=== PATIENT | male | born 1960 | race Caucasian/White ===

== ENCOUNTER 2023-09-18 10:44 | Inpatient (IN) | payer OTHER ==
[2023-09-18 11:47] VITALS: BMI 29.2
[2023-09-18] MEDS ORDERED: ACETAMINOPHEN 500 MG TAB PO PRN (12:23)
--- NOTE | 2023-09-18 13:49 | RAD REPORT ---
EXAM DESCRIPTION: RAD - Chest Pa And Lat (2 Views) - 09/18/2023 1:10 pm CLINICAL HISTORY: headache, AMS COMPARISON: Chest Pa And Lat (2 Views) dated 10/29/2016; CHEST PA AND LAT 2 VIEW dated 05/18/2010 TECHNIQUE: PA and lateral views of the chest were obtained. FINDINGS: The lungs are clear. Heart size is normal and central vasculature is within normal limits. No pleural effusion or pneumothorax seen. No acute bony finding noted. IMPRESSION: No acute cardiopulmonary process.
--- NOTE | 2023-09-18 15:10 | RAD REPORT ---
EXAM DESCRIPTION: MRI - Brain W/Wo Cont - 09/18/2023 2:05 pm CLINICAL HISTORY: headache, AMS COMPARISON: None available TECHNIQUE: Multiplanar multisequence MRI of the brain performed before and after intravenous adminis tration of 20 mL MultiHance. FINDINGS: Large heterogeneous mass with central necrosis and nodular peripheral enhancement, centere d on the right lateral ventricle trigone, invading the adjacent parenchyma,, with moderate associated cytotoxic edema pattern involving the adjacent right temporal and parietal lobes, resulting in mass effect, with leftward bowing of the septum pellucidum, by approximately 4 millimeter. Film like enhan cement extends along the right occipital horn ependyma layer, with focal entrapment of this segment. Some nodular asymmetric enhancement also extends along the right trigonal choroid plexus. In its grea test axial dimensions, the enhancing mass measures 5.7 x 3.9 cm, and approximately 4.7 cm in greatest craniocaudal extent. No evidence of acute infarct or other diffusion signal abnormality. Mild peripheral diffusion restric tion along the bilateral and posterior aspects of the mass. No evidence of acute intracranial hemorrhage or abnormal extra-axial fluid collections. No other findings to suggest hydrocephalus. Suprasellar cistern is patent. Mild apparent pachymeninge al enhancement along the high right parietal and frontal hemispheres, may relate to hyperemia and/or effacement of the sulci given asymmetric mass-effect. Possibility of leptomeningeal spread considered less likely since the finding does not persist on all sequences. Other scattered subcortical and deep white matter T2/FLAIR hyperintensities, nonspecific, but suggest stuart of chronic small vessel ischemic changes. Major vascular flow voids are preserved. Mastoid air cells and paranasal sinuses are clear. IMPRESSION: Large mass centered on the right lateral ventricle trigone, with central necrotic change , mass effect with 4 millimeter leftward midline shift, and focal entrapment of the right occipital h orn as above. The mass measures 5.7 x 4.7 x 3.9 cm. Differential considerations include glioblastoma multiform, less likely choroid plexus metastasis. Other considerations include choroid plexus carcino ma (less likely given patient's age). Poorly differentiated choroid plexus papilloma is possible but considered less likely. Questionable mild pachymeningeal enhancement along the high right parietal and frontal hemisphere, ma y relate to hyperemia and/or effacement of the sulci given asymmetric mass-effect. Possibility of lep tomeningeal spread considered less likely since the finding does not persist on all sequences. The findings were communicated to Kd eDe on 09/18/2023 at 15:06 hours.
[2023-09-18 15:36] LABS: Absolute Lymphocytes (CBC) 1.2 K/uL (0.7-4.9); Hematocrit 43.5 % (39.6-49.0); Lymphocytes % 14.5 % (15.3-44.8); MCV 87.2 fL (80-100); MPV 6.5 fL (7.6-11.3); Platelets 309 thou/uL (152-406); RBC Red Blood Cell Count 4.99 M/uL (4.33-5.43)
[2023-09-18] MEDS: METHYLPREDNISOLONE 125 MG INJ IV ONE ×2 (15:57→16:19)
[2023-09-18] MEDS ORDERED: levETIRAcetam 500 MG TAB PO ONE (15:58)
[2023-09-18 16:00] LABS: Albumin 3.7 g/dL (3.4-5.0); Bilirubin Total 0.7 mg/dL (0.2-1.0); Thyroid Stimulating Hormone 1.1 uIU/mL (0.358-3.740)
[2023-09-18] MEDS ORDERED: MORPHINE 2 MG/ML SYR IV ONE (16:41)
[2023-09-18] MEDS: ALPRAZOLAM 0.25 MG TABLET PO SCH (20:24)
[2023-09-18] MEDS: AMLODIPINE 5 MG TAB PO SCH (20:24)
[2023-09-18] MEDS: LOSARTAN POTASSIUM 50 MG TABLET PO SCH (20:24)
--- NOTE | 2023-09-18 22:02 | CON ---
Reason For Consultation: Consultation called by Dr. Dee because of headache and altered mental stat us. History Of Present Illness: Mr. Mai is a 63-year-old patient with hypertension, dyslipidemia, be nign prostate hypertrophy, who has about 3 weeks of slowly progressive headaches, altered mental stat us, difficulty focusing, and processing information and is being somewhat off-balance. He was seen b y Dr. Dee earlier in the day and sent to [facility] for further evaluation. His brain MRI is done on 09/18/2023, shows a large mass centered in the right lateral ventricle trigone with centra l necrotic change. There is mass effect with 4 mm leftward midline shift. There was focal entrapmen t of the right occipital horn. The mass measures 5.7 x 4.7 x 3.9 cm. Differential diagnosis include s a G glioblastoma multiforme and less likely a choroid plexus metastasis. Other considerations are choroid plexus carcinoma and poorly differentiated choroid plexus papilloma. They are considered les s likely. After this finding, patient was put on steroids, received IV steroids and continued overal l steroids. He was given Keppra for seizure prophylaxis. Given morphine for pain and as needed naus ea for vomiting. He has not had any vomiting or any nausea. The findings of the scan were discussed with the patient, his , and [id number]. That is with the family's permission. Currently, t he patient does not have focal deficits and is sitting comfortably in bed. Pain is managed. Past Medical History: As noted. Allergies: NO KNOWN DRUG ALLERGIES. Home Medications: Amlodipine 10 mg daily, losartan 50 mg daily. He is taking Keppra 250 mg twice daily and he did receive 60 mg of methylprednisolone and morphine 2 mg IV and has Tylenol 500 mg every 6 hours as needed. Family History: Stroke, hypertension, Alzheimer disease. Past Surgical History: None. Social History: Rare alcohol use. No tobacco use. No IV drug use. Review of Systems: He denies recent fevers, chills, nausea, vomiting. No stiff neck, but headache. Confusion, gait ins tability, but no focal deficits in terms of face, arm, and leg weakness or numbness. No rash. No ge nitourinary or gastrointestinal complaints or any other positives on a 10-point systems review. Physical Examination: Vital Signs: Blood pressure 152/87, pulse 75, respiratory rate 18, temperature 98.5, oxygen saturati on 97% and his pain level while in hospital did range up to 10/10 from a 4/10 to lower than that curr ently. HEENT: Mr. Mai is normocephalic, atraumatic. Sclerae are anicteric. Oropharynx pink and moist. Neck: Supple. Chest: Clear. Heart: Regular. Extremities: Show no clubbing, cyanosis, or edema. Neurologic: He is alert, oriented to situation, place, person. He follows commands appropriately. He has no cranial nerve deficits. Pupils are equally round, reactive to light and accommodation. Ex traocular movements are intact. Facial sensation is intact to light touch temperature bilaterally. Face is symmetric with equal excursions on smiling. Tongue extrudes in the midline. Motor exam: Th e upper extremity is 5/5 proximally and distally. Lower extremity 5/5 proximally and distally. Sens ory exam intact to light touch and temperature proximally and distally. Coordination is intact in up per and lower extremities. Reflexes: Very depressed and not elicited at the patellae area, in the h eels, trace upper extremities. His coordination appeared to be intact while sitting in bed. He was not ambulated at this point. Laboratory Studies: Complete blood count with differential is unremarkable essentially. His basic m etabolic panel also essentially unremarkable. BUN is slightly elevated at 19, creatinine normal at 1 .15. AST is slightly low at 11, ALT 21, alkaline phosphate is 83. TSH 1.1. Chest x-ray showed no a cute cardiopulmonary processes. Assessment: Mr. 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 Plan: 1.Continue with steroid 60 mg daily. 2.Keppra is 250 mg daily, perhaps up to 500 mg daily. 3.He may be seen in [place] for higher level of care, either at [facility] or [facility] to facilit ate further evaluation, staging, and potential surgical chemo biological treatment or radiation treat ment of the tumor once the diagnosis is rendered. The patient would benefit also from an EEG study t o determine if there is an active focus of epileptiform activity. In addition, may agree with contin ui a course of steroids and at this point, the patient and family are in agreement with the plan wh ere he may receive a higher level of care in [place] at one of the facilities that are capable of man aging the intracranial masses. The patient will be followed while in hospital. RAYNA Voice ID: [id number] Report ID: [id number]
[2023-09-18] MEDS: MORPHINE 2 MG/ML SYR IV PRN (22:18)
[2023-09-18] MEDS: ONDANSETRON 4 MG/2 ML VIAL IV PRN (22:18)
[2023-09-19] MEDS: MORPHINE 2 MG/ML SYR IV PRN ×2 (04:01→19:17)
--- NOTE | 2023-09-19 06:53 | HP ---
Date of Admission: 09/18/2023 Reason For Admission: Headache. History Of Present Illness: This is a 63-year-old pleasant male patient, who came in to see me with his today with complaints of headache. The patient says that on 08/28/2023, he went to his local pharmacy to get vaccination and he got his pneumonia and COVID-19 booster vaccine. That particular evening after he received vaccine, he started to have headache and some confusion. Denies any fall or head injury. No fever, chills. No nausea, vomiting. No visual complaints. No cough, congestion, or shortness of breath. This symptoms continued and [facility]/2023, [facility] and was given injection of steroid and pain medication injection and he was sent home. The patient felt fine maybe for couple of days and then his symptoms of headache and confusion started again. He has tried some ibuprofen and Excedrin Migraine without much relief. He reports having vomiting 2 times, first time at the beginning of onset of the symptoms about 2-3 weeks ago, and second time was about a week ago. The patient called office today and decided to come see me and after he was evaluated, decision was made to admit him to hospital for further evaluation and management of this problem. Allergies: No known allergies. Medications: Amlodipine, Atorvastatin and Losartan. Review of Systems: Neurology: As mentioned above, significant for headache and confusion. All other systems reviewed and negative. Past Medical History: Significant for hypertension, hyperlipidemia, diverticulosis, benign prostatic hypertrophy. Past Surgical History: Significant for partial resection of colon done on July 15, 2017, due to diverticulosis. Also had hemorrhoid surgery in the past, inguinal hernia repair, and vasectomy. Family History: Father , had congestive heart failure, hypertension, stroke, and psoriasis. Mother , had Alzheimer disease and unknown type of cancer. Brother has skin cancer. Sister has unknown type of cancer history. Social History: Negative for smoking. Use of alcohol occasional. Physical Examination: Vital Signs: When he came to office today, blood pressure 130/84, pulse 69, temperature 98.2, respiratory rate 16, weight 205 pounds and 8 ounces. Height 70 inches. General: Awake, alert, oriented, not in distress. HEENT: Head atraumatic, normocephalic. Conjunctivae nonerythematous. Sclerae white. Mouth, no thrush or edema noted. Ears/Nose, no mass, lesion, discharge noted. Neck: Supple. No JVD, lymph nodes, bruit, thyromegaly noted. Lungs: Bilateral good equal air entry. Clear to auscultation. No rhonchi. No rales. Heart: Normal heart sounds, no murmur or gallop. Abdomen: Soft, bowel sounds normal. No guarding, rigidity, tenderness, mass, hepatosplenomegaly, distention, or bruit noted. Extremities: No leg edema. No calf tenderness. Skin: No rash, ulcer, cellulitis. Lymphatics: No lymph node enlargement in neck, supraclavicular, infraclavicular region. Neuro: No focal neurological deficit. Chest: Unremarkable. External Genitalia: Deferred. Rectal: Deferred. Laboratory Data: WBC 8, hemoglobin 14.9, platelets 309. Sodium 137, potassium 4, chloride 104, bicarb 28, BUN 19, creatinine 1.15, liver function tests unremarkable. His x-rays did not show any acute pulmonary changes and MRI of brain with and without contrast done today after he was admitted to the hospital shows large mass centered on the right lateral ventricle trigone with central necrotic changes and mass effect with 40 mm leftward midline shift and focal enhancement of right occipital horn. Mass measures 5.7 x 4.7 x 3.9 cm size. Questionable mild patchy meningeal enhancement along the right parietal and frontal hemisphere. Impression: 1. Brain tumor. 2. Hypertension. 3. Hyperlipidemia. 4. Diverticulosis. Plan: The patient was admitted to the hospital after he presented to office with his complaints of headache and confusion and further workup done after he was admitted to the hospital including routine labs and MRI of the brain has revealed significant finding of right-sided brain tumor with some cerebral edema and 4 mm midline shift. There is no evidence of any hemorrhage. Soon after the patient was evaluated at office and decision was made to admit him to the hospital, I did communicate details with neurologist, Dr. Rios, and I communicated with him once again after an MRI result was available. Dr. Rios evaluated the patient later this evening and we communicated one more time after that. I did go back this evening to communicate with the patient regarding findings of MRI result, which he was made aware by Dr. Rios and I did go over all those results again. We do not know the nature of this brain tumor at this point but we are concerned about glioblastoma. Obviously, the patient needs higher level of care that we cannot provide at our hospital and my recommendation to him is to go to [facility] and that is exactly what he would like to do as well. We will try to see if we can transfer him to [facility] from our hospital and if we are not able to do so, then our plan will be to discharge him to go home with arrangements to be made for outpatient appointment through my office. 60 mg of Solu-Medrol IV was given soon after I received MRI result and also Keppra 250 mg p.o. x1 dose was ordered at that time. Our plan is to continue Keppra 250 mg b.i.d. starting tomorrow and we will give another dose of Solu-Medrol 60 mg IV tomorrow morning. If the patient goes home tomorrow and not able to be transferred to [facility], in that case we will discharge him to go home with oral prednisone and Keppra. For his hypertension, we will continue antihypertensive medication for hyperlipidemia. Continue statin therapy. The patient was advised not to use any aspirin, Aleve, Motrin, or any other form of nonsteroidal anti-inflammatory medications and he was informed that he may use Tylenol and it will be safe for him to use narcotic pain medication, but nothing else as outlined. He was having really bad headache earlier today and 1 dose of morphine 2 mg IV was given and he responded very well to that. We will give him something to help him sleep tonight and alprazolam 0.25 mg p.o. x1 dose was ordered for tonight. SCD was also ordered for DVT prophylaxis. I will see him tomorrow morning for followup and we have initiated transfer request to [facility] and I was already told that [facility] does not have any bed available at this point and they are on diversion. NEENA/MODL Voice ID: [id number] RYAN
[2023-09-19] MEDS: METHYLPREDNISOLONE 125 MG INJ IV SCH (08:17)
[2023-09-19] MEDS: levETIRAcetam 500 MG TAB PO SCH ×2 (08:18→20:18)
[2023-09-19] MEDS: AMLODIPINE 5 MG TAB PO SCH ×2 (08:18→20:18)
[2023-09-19] MEDS: LOSARTAN POTASSIUM 50 MG TABLET PO SCH ×2 (08:18→20:18)
[2023-09-19] MEDS: ONDANSETRON 4 MG/2 ML VIAL IV PRN (19:17)
[2023-09-19] MEDS: ALPRAZOLAM 0.25 MG TABLET PO SCH (20:18)
[2023-09-19] MEDS ORDERED: ATORVASTATIN 40 MG TAB PO SCH (21:00)
--- NOTE | 2023-09-19 21:17 | PN ---
Date of Progress Note: 09/19/2023 Subjective: The patient was seen this morning for followup. He denies any new complaints. No nause a, vomiting. He did require morphine use overnight for headache. Reports that since he has used mor phine, and with IV steroids, overall he feels better. Headache is better. No trouble swallowing. T his morning, when I saw him, he was in the room trying to go to the bathroom and as he was coming torsten k to the sink to wash his hands, it was noted that he was not steady on his feet and he lost balance, and almost fell down. I was standing behind him, and the patient's and myself, we both helped him to get back to the bed. Objective: Vital Signs: Reviewed. HEENT: Unremarkable. Lungs: Clear to auscultation. Heart: Sounds normal. Abdomen: Soft. Bowel sounds normal. No guarding, rigidity, tenderness, distention. Extremities: No leg edema. Neuro: No focal neurological deficit. The patient's still describes him as being foggy and men dillan status is not completely clear, and this has been going on for last 2 to 3 weeks, that has not ch anged. Impression: 1.Brain tumor with 4 mm midline shift. 2.Hypertension. 3.Hyperlipidemia. 4.Diverticulosis. Plan: The patient and the patient's requested for us to go ahead and initiate the transfer to [facility] in [place] and after I visited the patient, we did initiate this transfer. I did communicate with the neurologist at [facility], who has accepted the patient. Details were discussed with him and he wanted the patient to be in neuro ICU. Our plan is to transfer the patient via ground ambulance soon as bed is available in Neuro ICU at [facility] in [place]. The patient was made aware of this plan. While here at our facility, we will continue current medical therapy and continue his home medications. I have advised the patient and the patient's , who was present in the room at that time, and that is he should not ambulate on his own. Every time he gets out of the bed to do any activity, he must be assisted, and is w ith him all the time. I have also advised him to use walker and we have placed a walker next to his bed for his use. He is at high risk of fall and injury. NEENA/MODL Voice ID: [id number] Report ID: [id number]
[2023-09-20] MEDS: METHYLPREDNISOLONE 125 MG INJ IV SCH (08:10)
[2023-09-20] MEDS: levETIRAcetam 500 MG TAB PO SCH (08:10)
[2023-09-20] MEDS ORDERED: LOSARTAN POTASSIUM 50 MG TABLET PO SCH (08:18)
[2023-09-20] MEDS ORDERED: AMLODIPINE 5 MG TAB PO SCH (08:19)
[2023-09-20 08:30] VITALS: BP 117/80
[2023-09-20 08:32] VITALS: TEMP 98
[2023-09-20 08:45] VITALS: O2SAT 95
--- NOTE | 2023-09-20 13:13 | DS ---
Date of Discharge: 09/20/2023 Disposition: The patient was discharged from our hospital and was transferred via ground ambulance t o [facility] in [place]. Physical Examination: Vital Signs: This morning, temperature 98, pulse 57, respiratory rate 17, blood pressure 117/56, oxy gen saturation 95% on room air. Labs: Upon admission, white count 8, hemoglobin 14.9, platelets 309. Sodium 137, potassium 4, chlor martha 104, bicarb 28, BUN 19, creatinine 1.15, glucose 98. Liver function tests unremarkable. TSH 1.1 . Hospital Course: This is a 63-year-old very pleasant male patient who came into office with complain ts of headache and some confusion. Please see dictated H and P for more information. The patient ca me into office on 09/18/2023, and after I evaluated him, he was admitted to the hospital. After his admission to the hospital, further workup was done. Routine labs were unremarkable. Chest x-ray was unremarkable. MRI of the brain with and without contrast was done, which showed rather significant finding of a large brain tumor on the right side pressing on the right lateral ventricle and causing some surrounding cerebral edema and 4 mm midline shift from right to left side. This brain tumor was approximately 5.7 cm size in the largest dimension. There was no evidence of any hemorrhage. Neuro logy consultation was obtained from Dr. Rios and the patient was started on IV steroid, Solu-Medr ol 60 mg IV daily and Keppra 250 mg 2 times a day. As of today, we started him on famotidine 20 mg b .i.d. also. The patient has responded well to Solu-Medrol and he was also given morphine because of the headache. With combination of Solu-Medrol and morphine, the patient has felt very well. Actuall y, his headache is under much better control now, and he was given alprazolam at nighttime to help hi m rest and he has slept very well with that medication also. So today, overall, he is feeling better with all his complaints, he had unsteadiness on his feet, so he was advised not to ambulate on his o wn and to use a walker when he is walking and also not to ambulate on his own and has been with him all the time and she was advised to assist him at that time. We recommended the patient to go to [place] for higher level of care, and we tried to send him to [facility] and they did not have any beds available and family requested for us to try to get him to [facility] [place] [facility] and we initiated that process and I did communicate with the neurologist. Details were discussed and the patient was accepted and today once a bed was available, the patient was trans ferred via ground ambulance to this facility. Final Diagnoses: 1.Brain tumor. 2.Hypertension. 3.Hyperlipidemia. 4.Diverticulosis. NEENA/MODL Voice ID: [id number] Report ID: [id number]
[2023-09-20] MEDS ORDERED: FAMOTIDINE 20 MG TAB PO SCH (21:00)
== END 2023-09-20 10:21 | disposition short-term general hospital (02) | DRG 55 ==
LOC: 4TH 10:47 → OBSVTOIN 20:01
PROVIDERS: ADMIT Internal Medicine; ATTEND Internal Medicine
DX: C71.9 Malignant neoplasm of brain, unspecified (principal); I10 Essential (primary) hypertension; E78.5 Hyperlipidemia, unspecified; N40.0 Benign prostatic hyperplasia without lower urinary tract symptoms; K57.90 Diverticulosis of intestine, part unspecified, without perforation or abscess without bleeding; Z79.899 Other long term (current) drug therapy
CPT/HCPCS: 36415; 70553; 71046; 80053; 82565; 83735; 84443; 85025; A9577; G0378; G0379; J2270; J2405; J2930